=== PATIENT | female | born 1965 | race Hispanic/Latino ===

== ENCOUNTER → 2024-12-08 11:35 | Outpatient (CLI) | payer BC, SELFPAY ==
[2024-12-08 14:10] LABS: COVID-19 CEPHEID 4-PLEX PCR Negative (Negative); Influenza A - CEPHEID Flu A NEGATIVE (NEGATIVE); Influenza B - CEPHEID Flu B NEGATIVE (NEGATIVE); Respiratory Syncytial Virus Negative (Negative)
== END ==
PROVIDERS: Visit Provider Family Medicine
DX: J02.9 Acute pharyngitis, unspecified (principal); R50.9 Fever, unspecified
CPT/HCPCS: 0241U; 87070